=== PATIENT | male | born 1980 | race Two or more races ===

== ENCOUNTER 2018-10-07 17:06 | Emergency (ER) | payer MEDICAID ==
[~2018-10-07] VITALS: Ht 165.1 cm; Wt 70.0 kg
[2018-10-07 21:01] VITALS: BP 132/63
== END 2018-10-07 21:07 | disposition home or self-care (01) ==
LOC: ER 17:06
DX: R51 Headache (principal); F10.20 Alcohol dependence, uncomplicated; Y90.0 Blood alcohol level of less than 20 mg/100 ml; F32.9 Major depressive disorder, single episode, unspecified; E78.00 Pure hypercholesterolemia, unspecified; I10 Essential (primary) hypertension
CPT/HCPCS: 99283